=== PATIENT | male | born 1935 | race African-American/Black ===

== ENCOUNTER 2017-05-16 13:30 | Inpatient (IN) | payer MEDICARE ==
[~2017-05-16] VITALS: Ht 188 cm; Wt 66.2 kg
[2017-05-16] MEDS ORDERED: SODIUM CHLORIDE 0.9% 1,000 ML IV ONE (14:15)
[2017-05-16 14:44] LABS: KETONES URINE NEGATIVE (NEGATIVE); LEUKOCYTE ESTERASE URINE 3+ (NEGATIVE); NITRITE URINE NEGATIVE (NEGATIVE); OCCULT BLOOD URINE 3+ (NEGATIVE); PH URINE 6.5 (4.5-8.0); PROTEIN URINE 3+ (NEGATIVE); SPECIFIC GRAVITY URINE 1.012 (1.005-1.030); UROBILINOGEN URINE 0.2 E.U./dL (0.2-1.0)
[2017-05-16 14:47] LABS: CLARITY URINE TURBID (CLEAR); COLOR URINE YELLOW (YELLOW)
[2017-05-16] MEDS ORDERED: PIPERACILLIN/TAZ 3.375G PREMIX 50 ML IV ONE (15:15)
[2017-05-16 15:27] LABS: BASOPHILS % 0.7 % (0.0-2.0); EOSINOPHILS % 0.7 % (0.0-5.0); HEMATOCRIT. 31.3 % (42.0-52.0); HEMOGLOBIN. 10.1 g/dL (14.0-18.0); LYMPHOCYTES % 35.5 % (20.0-50.0); MEAN CORPUSCULAR HEMOGLOBIN 27.8 pg (28.0-32.0); MEAN CORPUSCULAR VOLUME 86.2 fL (80.0-94.0); MEAN PLATELET VOLUME 8.2 fl (7.4-10.4); MONOCYTES % 9.6 % (2.0-8.0); NEUTROPHILS % 53.5 % (40.0-76.0); PLATELET 267 x1000/uL (130-400); RED BLOOD CELL COUNT 3.63 mill/uL (4.7-6.1); RED CELL DISTRIBUTION WIDTH 17.7 % (11.6-14.6)
[2017-05-16 15:31] LABS: INR 1.1; PROTHROMBIN TIME 11.1 sec (9.4-11.6)
[2017-05-16 15:32] LABS: CHLORIDE 104 mEq/L (98-107)
[2017-05-16] MEDS ORDERED: INSULIN REGULAR (HUMULIN R) 300UNITS/3ML IV ONE (15:45)
[2017-05-16] MEDS ORDERED: DEXTROSE 50% WATER 50ML SYRINGE IV ONE (15:45)
[2017-05-16] MEDS ORDERED: SODIUM BICARBONATE 8.4% 1 MEQ/ML 50ML SYR IV ONE (15:45)
[2017-05-16] MEDS ORDERED: SODIUM POLYSTYRENE SULFONATE 15 G/60 ML BOT PO ONE (15:45)
[2017-05-16] MEDS ORDERED: ALBUTEROL (0.083%) 2.5MG/3ML NEB HHN ONE (15:45)
[2017-05-16] MEDS ORDERED: ACETAMINOPHEN 325MG TABLET PO PRN (19:15)
[2017-05-16] MEDS ORDERED: GUAIFENESIN 200MG/10ML SUGAR FREE UDC PO PRN (19:15)
[2017-05-16] MEDS ORDERED: NA PHOS,M-B/NA PHOS,DI-BA ENEMA 118ML PR PRN (19:15)
[2017-05-16] MEDS ORDERED: ONDANSETRON HCL 4MG/2ML VIAL IV PRN (19:15)
[2017-05-16] MEDS ORDERED: MAGNESIUM/ALUMINUM HYDROXIDE/SIMETHICONE 30ML UDC PO PRN (19:15)
[2017-05-16] MEDS ORDERED: CLONIDINE 0.1MG TABLET PO PRN (19:15)
[2017-05-16] MEDS ORDERED: PIPERACILLIN/TAZ 2.25G PREMIX 50 ML IV ONE (22:00)
[2017-05-16 23:15] VITALS: BP 140/68
[2017-05-17] VITALS: BP 140/68
[2017-05-17] MEDS ORDERED: DEXTROSE 50% WATER 50ML SYRINGE IV PRN ×2 (00:45)
[2017-05-17 04:00] VITALS: BP 108/59
[2017-05-17] MEDS: PIPERACILLIN/TAZ 2.25G PREMIX 50 ML IV SCH ×2 (04:15→17:22)
[2017-05-17] MEDS: BLOOD SUGAR DIAGNOSTIC STRIP TEST SCH ×4 (06:16→20:55)
[2017-05-17] MEDS: INSULIN LISPRO 100 UNITS/ML SUBCUT SCH ×4 (06:19→20:57)
[2017-05-17 06:21] LABS: BASOPHILS % 1.1 % (0.0-2.0); EOSINOPHILS % 1.6 % (0.0-5.0); HEMATOCRIT. 27.3 % (42.0-52.0); LYMPHOCYTES % 28.5 % (20.0-50.0); MEAN CORPUSCULAR VOLUME 84.3 fL (80.0-94.0); MEAN PLATELET VOLUME 7.5 fl (7.4-10.4); MONOCYTES % 11.1 % (2.0-8.0); NEUTROPHILS % 57.7 % (40.0-76.0); PLATELET 254 x1000/uL (130-400); RED BLOOD CELL COUNT 3.23 mill/uL (4.7-6.1); RED CELL DISTRIBUTION WIDTH 17.3 % (11.6-14.6)
[2017-05-17 08:00] VITALS: BP 118/54
[2017-05-17] MEDS ORDERED: SODIUM POLYSTYRENE SULFONATE 15 G/60 ML BOT PO NR (11:00)
[2017-05-17] MEDS ORDERED: SODIUM BICARBONATE 8.4% 1 MEQ/ML 50ML SYR IV NR (11:00)
[2017-05-17] MEDS ORDERED: SODIUM CHLORIDE 0.45% 1,000 ML IV SCH (11:15)
[2017-05-17 12:00] VITALS: BP 100/41
[2017-05-17] MEDS ORDERED: DEXTROSE 50% WATER 50ML SYRINGE IV NR (12:00)
[2017-05-17] MEDS ORDERED: INSULIN REGULAR (HUMULIN R) UD 100 UNITS/ML SYR IV NR (12:00)
[2017-05-17] MEDS ORDERED: SODIUM BICARBONATE 4% (2.4MEQ) 5ML VIAL IV ONE (13:01)
[2017-05-17] MEDS ORDERED: LIDOCAINE HCL/PF 1% 10 MG/ML 5ML VIAL ONE (13:01)
[2017-05-17 16:00] VITALS: BP 99/75
[2017-05-17 20:00] VITALS: BP 106/55
[2017-05-17] MEDS: DEXT 5%/0.45% NACL 1000ML 1,000 ML IV SCH (20:57)
[2017-05-18] VITALS: BP 110/88
[2017-05-18 04:00] VITALS: BP 119/70
[2017-05-18] MEDS: PIPERACILLIN/TAZ 2.25G PREMIX 50 ML IV SCH ×2 (04:04→16:49)
[2017-05-18] MEDS: BLOOD SUGAR DIAGNOSTIC STRIP TEST SCH ×4 (05:54→21:29)
[2017-05-18] MEDS: INSULIN LISPRO 100 UNITS/ML SUBCUT SCH ×4 (05:58→21:00)
[2017-05-18 07:35] LABS: BASOPHILS % 0.7 % (0.0-2.0); EOSINOPHILS % 1.8 % (0.0-5.0); HEMATOCRIT. 25.8 % (42.0-52.0); HEMOGLOBIN. 8.6 g/dL (14.0-18.0); LYMPHOCYTES % 25.1 % (20.0-50.0); MEAN CORPUSCULAR HEMOGLOBIN 28.1 pg (28.0-32.0); MEAN CORPUSCULAR VOLUME 84.2 fL (80.0-94.0); MEAN PLATELET VOLUME 7.9 fl (7.4-10.4); MONOCYTES % 7.9 % (2.0-8.0); NEUTROPHILS % 64.5 % (40.0-76.0); PLATELET 191 x1000/uL (130-400); RED BLOOD CELL COUNT 3.06 mill/uL (4.7-6.1); RED CELL DISTRIBUTION WIDTH 17.3 % (11.6-14.6)
[2017-05-18 07:51] LABS: PHOSPHORUS 4.8 mg/dL (2.5-4.9)
[2017-05-18 08:00] VITALS: BP 100/54
[2017-05-18] MEDS: FINASTERIDE 5MG TABLET PO SCH (10:53)
[2017-05-18] MEDS: TAMSULOSIN HCL 0.4MG SR CAPSULE PO SCH (10:53)
[2017-05-18] MEDS: DEXT 5%/0.45% NACL 1000ML 1,000 ML IV SCH ×2 (11:10→21:35)
[2017-05-18 12:00] VITALS: BP 101/50
[2017-05-18 13:07] LABS: PROSTRATE SPECIFIC AG TOTAL 16.43 ng/mL (0.0-4.0)
[2017-05-18 13:08] LABS: HEPATITIS B SURFACE AB > 1000.0 mIU/mL
[2017-05-18 13:19] LABS: HEPATITIS B SURFACE ANTIGEN NEGATIVE
[2017-05-18 13:47] LABS: HEPATITIS B CORE AB IGM NEGATIVE
[2017-05-18 13:48] LABS: HEPATITIS A AB IGM NEGATIVE (NEGATIVE)
[2017-05-18 16:00] VITALS: BP 90/51
[2017-05-18 20:00] VITALS: BP 130/70
[2017-05-18] MEDS: EPOETIN ALFA 10000UNITS/ML VIAL SUBCUT SCH (21:32)
[2017-05-19] VITALS: BP 125/72
[2017-05-19 04:00] VITALS: BP 100/57
[2017-05-19] MEDS: PIPERACILLIN/TAZ 2.25G PREMIX 50 ML IV SCH ×2 (04:10→16:17)
[2017-05-19] MEDS: BLOOD SUGAR DIAGNOSTIC STRIP TEST SCH ×5 (05:42→21:24)
[2017-05-19] MEDS: INSULIN LISPRO 100 UNITS/ML SUBCUT SCH ×4 (05:44→21:00)
[2017-05-19 06:50] LABS: BASOPHILS % 0.6 % (0.0-2.0); EOSINOPHILS % 1.5 % (0.0-5.0); HEMATOCRIT. 26.8 % (42.0-52.0); LYMPHOCYTES % 24.4 % (20.0-50.0); MEAN CORPUSCULAR HEMOGLOBIN 28.4 pg (28.0-32.0); MEAN CORPUSCULAR VOLUME 84.8 fL (80.0-94.0); MEAN PLATELET VOLUME 7.8 fl (7.4-10.4); MONOCYTES % 8.2 % (2.0-8.0); NEUTROPHILS % 65.3 % (40.0-76.0); PLATELET 181 x1000/uL (130-400); RED BLOOD CELL COUNT 3.16 mill/uL (4.7-6.1); RED CELL DISTRIBUTION WIDTH 17.4 % (11.6-14.6)
[2017-05-19 08:00] VITALS: BP 109/62
[2017-05-19] MEDS: FINASTERIDE 5MG TABLET PO SCH (08:19)
[2017-05-19] MEDS: TAMSULOSIN HCL 0.4MG SR CAPSULE PO SCH (08:20)
[2017-05-19] MEDS: DEXT 5%/0.45% NACL 1000ML 1,000 ML IV SCH (11:14)
[2017-05-19 12:00] VITALS: BP 109/67
[2017-05-19 16:00] VITALS: BP 122/63
[2017-05-19 20:00] VITALS: BP 120/71
[2017-05-20] VITALS: BP 107/59
[2017-05-20] MEDS: DEXT 5%/0.45% NACL 1000ML 1,000 ML IV SCH (01:11)
[2017-05-20 04:00] VITALS: BP 102/58
[2017-05-20] MEDS: PIPERACILLIN/TAZ 2.25G PREMIX 50 ML IV SCH ×2 (04:28→18:47)
[2017-05-20 06:10] LABS: HEMATOCRIT. 27.1 % (42.0-52.0); MEAN CORPUSCULAR HEMOGLOBIN 28.1 pg (28.0-32.0); MEAN CORPUSCULAR VOLUME 85.1 fL (80.0-94.0); MEAN PLATELET VOLUME 8.1 fl (7.4-10.4); MONOCYTES % 9.4 % (2.0-8.0); NEUTROPHILS % 55.6 % (40.0-76.0); PLATELET 130 x1000/uL (130-400); RED BLOOD CELL COUNT 3.19 mill/uL (4.7-6.1); RED CELL DISTRIBUTION WIDTH 17.1 % (11.6-14.6)
[2017-05-20] MEDS: INSULIN LISPRO 100 UNITS/ML SUBCUT SCH ×2 (06:35→21:00)
[2017-05-20] MEDS: BLOOD SUGAR DIAGNOSTIC STRIP TEST SCH ×2 (06:35→21:16)
[2017-05-20 08:00] VITALS: BP 106/79
[2017-05-20] MEDS: FINASTERIDE 5MG TABLET PO SCH (09:00)
[2017-05-20] MEDS: TAMSULOSIN HCL 0.4MG SR CAPSULE PO SCH (09:00)
[2017-05-20 12:00] VITALS: BP_SYST 110; BP_SYST 168; BP_DIAS 74; BP_DIAS 96
[2017-05-20] MEDS ORDERED: MIDAZOLAM HCL 5 MG/5 ML VIAL ONE (13:03)
[2017-05-20] MEDS ORDERED: FENTANYL CITRATE/PF 50MCG/ML 2ML VIAL ONE (13:03)
[2017-05-20] MEDS ORDERED: TETRACAINE/BENZOCAINE/BUTAMBEN 20 GM SPRAY MM ONE (13:03)
[2017-05-20] MEDS ORDERED: LIDOCAINE HCL 2% JELLY 5ML ONE (13:03)
[2017-05-20 16:00] VITALS: BP 99/72
[2017-05-20 19:54] VITALS: BP 104/51
[2017-05-20] MEDS: EPOETIN ALFA 10000UNITS/ML VIAL SUBCUT SCH (21:11)
[2017-05-21] VITALS: BP 108/60
[2017-05-21] MEDS: PIPERACILLIN/TAZ 2.25G PREMIX 50 ML IV SCH (03:25)
[2017-05-21] MEDS: DEXT 5%/0.45% NACL 1000ML 1,000 ML IV SCH ×2 (03:25→20:53)
[2017-05-21 04:00] VITALS: BP 114/65
[2017-05-21] MEDS: BLOOD SUGAR DIAGNOSTIC STRIP TEST SCH ×4 (06:26→20:52)
[2017-05-21] MEDS: INSULIN LISPRO 100 UNITS/ML SUBCUT SCH ×4 (06:47→20:52)
[2017-05-21 08:00] VITALS: BP 106/59
[2017-05-21] MEDS: TAMSULOSIN HCL 0.4MG SR CAPSULE PO SCH (09:00)
[2017-05-21] MEDS: FINASTERIDE 5MG TABLET PO SCH (10:19)
[2017-05-21 12:00] VITALS: BP 100/61
[2017-05-21 13:35] LABS: EOSINOPHILS % 1.8 % (0.0-5.0); HEMATOCRIT. 29.7 % (42.0-52.0); HEMOGLOBIN. 9.7 g/dL (14.0-18.0); LYMPHOCYTES % 21.1 % (20.0-50.0); MEAN CORPUSCULAR HEMOGLOBIN 28.2 pg (28.0-32.0); MEAN CORPUSCULAR VOLUME 86.6 fL (80.0-94.0); MEAN PLATELET VOLUME 8.2 fl (7.4-10.4); MONOCYTES % 6.6 % (2.0-8.0); NEUTROPHILS % 69.5 % (40.0-76.0); PLATELET 143 x1000/uL (130-400); RED BLOOD CELL COUNT 3.43 mill/uL (4.7-6.1); RED CELL DISTRIBUTION WIDTH 17.2 % (11.6-14.6)
[2017-05-21 16:00] VITALS: BP 103/64
[2017-05-21] MEDS ORDERED: LEVOFLOXACIN 500MG TABLET PO NR (16:25)
[2017-05-21] MEDS: CEFTRIAXONE 2 G in DEXTROSE 5% WATER 50 ML IV SCH (18:47)
[2017-05-21 20:00] VITALS: BP 104/55
[2017-05-21] MEDS ORDERED: VANCOMYCIN 1 G PREMIX 200 ML IV NR (20:00)
[2017-05-22] VITALS: BP 102/60
[2017-05-22 04:00] VITALS: BP 128/66
[2017-05-22] MEDS: BLOOD SUGAR DIAGNOSTIC STRIP TEST SCH ×4 (07:33→21:00)
[2017-05-22 07:34] LABS: BASOPHILS % 0.9 % (0.0-2.0); HEMATOCRIT. 27.9 % (42.0-52.0); HEMOGLOBIN. 9.1 g/dL (14.0-18.0); LYMPHOCYTES % 28.1 % (20.0-50.0); MEAN CORPUSCULAR HEMOGLOBIN 28.1 pg (28.0-32.0); MEAN CORPUSCULAR VOLUME 86.2 fL (80.0-94.0); MEAN PLATELET VOLUME 8.4 fl (7.4-10.4); MONOCYTES % 8.6 % (2.0-8.0); NEUTROPHILS % 60.4 % (40.0-76.0); PLATELET 130 x1000/uL (130-400); RED BLOOD CELL COUNT 3.24 mill/uL (4.7-6.1)
[2017-05-22 07:35] LABS: INR 1.2; PARTIAL THROMBOPLASTIN TIME 31.8 sec (23.4-31.0); PROTHROMBIN TIME 12.2 sec (9.4-11.6)
[2017-05-22] MEDS: INSULIN LISPRO 100 UNITS/ML SUBCUT SCH ×4 (07:35→21:00)
[2017-05-22 07:39] VITALS: BP 128/61
[2017-05-22] MEDS: FINASTERIDE 5MG TABLET PO SCH (08:22)
[2017-05-22] MEDS: TAMSULOSIN HCL 0.4MG SR CAPSULE PO SCH (08:22)
[2017-05-22 08:30] LABS: C REACTIVE PROTEIN QUANT 8.5 mg/L (0.0-3.0)
[2017-05-22] MEDS ORDERED: VANCOMYCIN 1250MG in DEXTROSE 5% WATER 250ML IV NR (10:00)
[2017-05-22 11:43] VITALS: BP 107/51
[2017-05-22 16:01] VITALS: BP 104/52
[2017-05-22] MEDS: CEFTRIAXONE 2 G in DEXTROSE 5% WATER 50 ML IV SCH (16:58)
[2017-05-22] MEDS: DEXT 5%/0.45% NACL 1000ML 1,000 ML IV SCH (16:58)
[2017-05-22 20:00] VITALS: BP 111/55
[2017-05-22] MEDS: EPOETIN ALFA 10000UNITS/ML VIAL SUBCUT SCH (21:05)
[2017-05-23] VITALS: BP 107/59
[2017-05-23 04:00] VITALS: BP 105/62
[2017-05-23] MEDS: BLOOD SUGAR DIAGNOSTIC STRIP TEST SCH (06:47)
[2017-05-23] MEDS: INSULIN LISPRO 100 UNITS/ML SUBCUT SCH (06:48)
[2017-05-23 07:59] VITALS: BP 118/65
[2017-05-23] MEDS: TAMSULOSIN HCL 0.4MG SR CAPSULE PO SCH (08:01)
[2017-05-23] MEDS: FINASTERIDE 5MG TABLET PO SCH (08:01)
[2017-05-23 08:03] LABS: BASOPHILS % 0.8 % (0.0-2.0); EOSINOPHILS % 2.6 % (0.0-5.0); HEMATOCRIT. 30.4 % (42.0-52.0); HEMOGLOBIN. 9.6 g/dL (14.0-18.0); MEAN CORPUSCULAR HEMOGLOBIN 27.9 pg (28.0-32.0); MEAN CORPUSCULAR VOLUME 88.1 fL (80.0-94.0); MEAN PLATELET VOLUME 8.6 fl (7.4-10.4); MONOCYTES % 8.4 % (2.0-8.0); NEUTROPHILS % 51.2 % (40.0-76.0); PLATELET 147 x1000/uL (130-400); RED BLOOD CELL COUNT 3.46 mill/uL (4.7-6.1)
[2017-05-23 08:44] LABS: PHOSPHORUS 2.3 mg/dL (2.5-4.9)
[2017-05-23] MEDS: LEVOFLOXACIN 250MG TABLET PO SCH (11:24)
[2017-05-23] MEDS: DEXT 5%/0.45% NACL 1000ML 1,000 ML IV SCH (11:24)
[2017-05-23 11:47] VITALS: BP 92/55
[2017-05-23] MEDS ORDERED: VANCOMYCIN 1 G PREMIX 200 ML IV NR (12:00)
[2017-05-23] MEDS ORDERED: VANCOMYCIN 1250MG in DEXTROSE 5% WATER 250ML IV NR (12:00)
[2017-05-23 16:00] VITALS: BP 100/60
[2017-05-23] MEDS: CEFTRIAXONE 2 G in DEXTROSE 5% WATER 50 ML IV SCH (17:00)
[2017-05-23 20:00] VITALS: BP 109/58
[2017-05-23] MEDS ORDERED: SODIUM PHOS,M-BASIC-D-BASIC 15 MM in DEXT 5% WATER 245 ML IV NR (23:00)
[2017-05-23] MEDS ORDERED: MAGNESIUM 2 G PREMIX 50 ML IV NR (23:00)
[2017-05-24] VITALS (7 sets, daily range): BP systolic 103–128; BP diastolic 51–70
[2017-05-24 07:28] LABS: BASOPHILS % 1.2 % (0.0-2.0); EOSINOPHILS % 3.1 % (0.0-5.0); HEMATOCRIT. 27.4 % (42.0-52.0); HEMOGLOBIN. 8.9 g/dL (14.0-18.0); LYMPHOCYTES % 34.7 % (20.0-50.0); MEAN CORPUSCULAR HEMOGLOBIN 28.4 pg (28.0-32.0); MEAN CORPUSCULAR VOLUME 87.5 fL (80.0-94.0); MEAN PLATELET VOLUME 8.3 fl (7.4-10.4); MONOCYTES % 9.4 % (2.0-8.0); NEUTROPHILS % 51.6 % (40.0-76.0); PLATELET 141 x1000/uL (130-400); RED BLOOD CELL COUNT 3.13 mill/uL (4.7-6.1); RED CELL DISTRIBUTION WIDTH 16.6 % (11.6-14.6)
[2017-05-24] MEDS: DEXT 5%/0.45% NACL 1000ML 1,000 ML IV SCH (08:20)
[2017-05-24] MEDS: FINASTERIDE 5MG TABLET PO SCH (08:21)
[2017-05-24] MEDS: TAMSULOSIN HCL 0.4MG SR CAPSULE PO SCH (08:27)
[2017-05-24] MEDS: CEFTRIAXONE 2 G in DEXTROSE 5% WATER 50 ML IV SCH (17:43)
[2017-05-25] VITALS: BP 121/64
[2017-05-25 04:00] VITALS: BP 110/62
[2017-05-25] MEDS: DEXT 5%/0.45% NACL 1000ML 1,000 ML IV SCH (04:45)
[2017-05-25 08:00] VITALS: BP 104/67
[2017-05-25] MEDS: TAMSULOSIN HCL 0.4MG SR CAPSULE PO SCH (08:42)
[2017-05-25] MEDS: FINASTERIDE 5MG TABLET PO SCH (08:42)
[2017-05-25] MEDS: LEVOFLOXACIN 250MG TABLET PO SCH (11:09)
[2017-05-25 12:00] VITALS: BP 112/64
[2017-05-25] MEDS ORDERED: VANCOMYCIN 1250MG in DEXTROSE 5% WATER 250ML IV SCH (14:30)
[2017-05-25] MEDS: CEFTRIAXONE 2 G in DEXTROSE 5% WATER 50 ML IV SCH (15:24)
[2017-05-25 16:00] VITALS: BP 116/71
== END 2017-05-25 18:57 | disposition home or self-care (01) | DRG 871 ==
LOC: ER 15:17 → 8WST 16:13 → EDBEDREQTM 16:15 → EDBEDREQ 16:15 → SUPCPDRO 19:09 → ENRESERV 19:30
PROVIDERS: ADMIT Internal Medicine Nephrology; ATTEND Internal Medicine Nephrology
PROC: 02HV33Z Insertion of Infusion Device into Superior Vena Cava, Percutaneous Approach (ICD-10-PCS; 2017-05-17)
PROC: B548ZZA Ultrasonography of Superior Vena Cava, Guidance (ICD-10-PCS; 2017-05-17)
PROC: B24BZZ4 Ultrasonography of Heart with Aorta, Transesophageal (ICD-10-PCS; principal; 2017-05-20)
PROC: 02HV33Z Insertion of Infusion Device into Superior Vena Cava, Percutaneous Approach (ICD-10-PCS; 2017-05-22)
PROC: B5181ZA Fluoroscopy of Superior Vena Cava using Low Osmolar Contrast, Guidance (ICD-10-PCS; 2017-05-22)
DX: A41.9 Sepsis, unspecified organism (principal); N17.0 Acute kidney failure with tubular necrosis; E87.2 Acidosis; I13.0 Hypertensive heart and chronic kidney disease with heart failure and stage 1 through stage 4 chronic kidney disease, or unspecified chronic kidney disease; N39.0 Urinary tract infection, site not specified; N13.8 Other obstructive and reflux uropathy; E87.5 Hyperkalemia; B96.89 Other specified bacterial agents as the cause of diseases classified elsewhere; R31.0 Gross hematuria; N18.9 Chronic kidney disease, unspecified; D50.0 Iron deficiency anemia secondary to blood loss (chronic); N40.1 Benign prostatic hyperplasia with lower urinary tract symptoms; I27.20 Pulmonary hypertension, unspecified; D63.8 Anemia in other chronic diseases classified elsewhere; N28.1 Cyst of kidney, acquired; I50.9 Heart failure, unspecified; R33.8 Other retention of urine; N41.9 Inflammatory disease of prostate, unspecified
CPT/HCPCS: 36415; 36556; 51702; 71045; 74176; 76770; 76937; 77001; 80048; 80053; 80202; 81003; 82570; 82962; 83036; 83605; 83735; 83880; 84100; 84153; 84484; 85025; 85610; 85651; 85730; 86140; 86705; 86706; 86709; 86803; 87040; 87077; 87086; 87186; 87340; 93005; 93306; 93312; 93970; 94640; 96361; 96365; 96375; 97110; 97116; 97162; 97530; 99291; C1752; C1769; C1893; J0696; J0885; J1642; J1815; J2250; J2543; J3010; J3370; J3475; J3490; J7030; J7040; J7050; J7060; J7611; A4315

== ENCOUNTER 2017-06-08 10:55 | Inpatient (IN) | payer MEDICARE ==
[~2017-06-08] VITALS: Ht 188 cm; Wt 63.5 kg
[2017-06-08 12:36] LABS: BASOPHILS % 1.2 % (0.0-2.0); EOSINOPHILS % 1.1 % (0.0-5.0); HEMATOCRIT. 27.6 % (42.0-52.0); HEMOGLOBIN. 8.8 g/dL (14.0-18.0); LYMPHOCYTES % 14.7 % (20.0-50.0); MEAN CORPUSCULAR HEMOGLOBIN 28.6 pg (28.0-32.0); MEAN PLATELET VOLUME 8.4 fl (7.4-10.4); MONOCYTES % 8.7 % (2.0-8.0); NEUTROPHILS % 74.3 % (40.0-76.0); PLATELET 238 x1000/uL (130-400); RED BLOOD CELL COUNT 3.07 mill/uL (4.7-6.1); RED CELL DISTRIBUTION WIDTH 17.3 % (11.6-14.6)
[2017-06-08 12:43] LABS: INR 1.1
[2017-06-08 12:46] LABS: CHLORIDE 113 mEq/L (98-107)
[2017-06-08 12:51] LABS: BG BASE EXCESS -8.5 mmol/L (-2.0-2.0); BG CARBOXYHEMOGLOBIN 0.4 % (0.5-1.5); BG DEOXYHEMOGLOBIN 2.6 % (0.0-5.0); BG FRACTION INSPIRED OXYGEN 21; BG HCO3 ACT 15.5 mmol/L (22.0-26.0); BG PCO2 27.1 mmHg (35.0-45.0); BG PH 7.376 (7.350-7.450); BG SAMPLE SITE RIGHT RADIAL; BG TOTAL HEMOGLOBIN 9.6 g/dL (12.0-18.0); BG VENT MODE ROOM AIR
[2017-06-08 13:44] LABS: CREATINE KINASE MB FRACTION 10.1 ng/mL (0.5-3.6)
[2017-06-08] MEDS ORDERED: HYDROMORPHONE HCL/PF 2MG/ML CPJ IV PRN (14:15)
[2017-06-08] MEDS ORDERED: CLONIDINE 0.1MG TABLET PO PRN (14:15)
[2017-06-08] MEDS ORDERED: ONDANSETRON HCL 4MG/2ML VIAL IV PRN (14:15)
[2017-06-08] MEDS ORDERED: ACETAMINOPHEN 325MG TABLET PO PRN (14:15)
[2017-06-08] MEDS ORDERED: DOCUSATE SODIUM 100MG CAPSULE PO PRN (14:15)
[2017-06-08] MEDS ORDERED: DEXT 5%/0.45% NACL 1000ML 1,000 ML IV SCH (14:48)
[2017-06-08] MEDS ORDERED: CEFTRIAXONE 2 G PREMIX 50 ML IV NR (14:50)
[2017-06-08] MEDS ORDERED: VANCOMYCIN 1250MG in DEXTROSE 5% WATER 250ML IV NR (14:52)
[2017-06-08 15:38] LABS: AMMONIA 14 uMol/L (<32)
[2017-06-08] MEDS ORDERED: CLOPIDOGREL 75MG TABLET PO SCH (16:15)
[2017-06-08 18:08] LABS: CLARITY URINE CLEAR (CLEAR); COLOR URINE YELLOW (YELLOW); KETONES URINE TRACE (NEGATIVE); LEUKOCYTE ESTERASE URINE TRACE (NEGATIVE); NITRITE URINE NEGATIVE (NEGATIVE); OCCULT BLOOD URINE 1+ (NEGATIVE); PROTEIN URINE TRACE (NEGATIVE); SPECIFIC GRAVITY URINE 1.015 (1.005-1.030); UROBILINOGEN URINE 0.2 E.U./dL (0.2-1.0)
[2017-06-08 20:00] VITALS: BP 121/64
[2017-06-08 20:20] VITALS: BP 121/64
[2017-06-08] MEDS: FUROSEMIDE 20MG TABLET PO SCH (21:28)
[2017-06-08] MEDS: LEVOFLOXACIN 250MG TABLET PO SCH (21:28)
[2017-06-08] MEDS: TAMSULOSIN HCL 0.4MG SR CAPSULE PO SCH (21:31)
[2017-06-08] MEDS: FINASTERIDE 5MG TABLET PO SCH (21:31)
[2017-06-08] MEDS ORDERED: FINA5TAB11 MT (22:36)
[2017-06-08] MEDS ORDERED: TAMS-11 MT (22:36)
[2017-06-08] MEDS ORDERED: LEVO250T2 MT (22:36)
[2017-06-09] VITALS (9 sets, daily range): BP systolic 106–157; BP diastolic 64–86
[2017-06-09] MEDS: EPOETIN ALFA 10000UNITS/ML VIAL SUBCUT SCH ×2 (01:16→20:30)
[2017-06-09 07:36] LABS: BASOPHILS % 1.2 % (0.0-2.0); EOSINOPHILS % 3.6 % (0.0-5.0); HEMATOCRIT. 23.1 % (42.0-52.0); HEMOGLOBIN. 7.5 g/dL (14.0-18.0); LYMPHOCYTES % 21.7 % (20.0-50.0); MEAN CORPUSCULAR HEMOGLOBIN 28.8 pg (28.0-32.0); MEAN CORPUSCULAR VOLUME 88.5 fL (80.0-94.0); MONOCYTES % 8.6 % (2.0-8.0); NEUTROPHILS % 64.9 % (40.0-76.0); PLATELET 217 x1000/uL (130-400); RED BLOOD CELL COUNT 2.61 mill/uL (4.7-6.1); RED CELL DISTRIBUTION WIDTH 16.7 % (11.6-14.6)
[2017-06-09] MEDS: IPRATROPIUM/ALBUTEROL 0.5-3(2.5)MG/3ML NEB INH SCH ×3 (08:11→20:20)
[2017-06-09 08:36] LABS: CHLORIDE 117 mEq/L (98-107)
[2017-06-09 08:45] LABS: HDL CHOLESTEROL 67 mg/dL (40-59)
[2017-06-09 08:48] LABS: PHOSPHORUS 3.8 mg/dL (2.5-4.9)
[2017-06-09 08:49] LABS: LDL CHOLESTEROL 41 mg/dL (5-100)
[2017-06-09 08:50] LABS: CREATINE KINASE 444 IU/L (39-308)
[2017-06-09] MEDS ORDERED: SODIUM POLYSTYRENE SULFONATE 15 G/60 ML BOT PO SCH (09:00)
[2017-06-09 10:18] LABS: T4 FREE 1.02 ng/dL (0.76-1.46)
[2017-06-09] MEDS: FUROSEMIDE 20MG TABLET PO SCH (10:31)
[2017-06-09] MEDS: TAMSULOSIN HCL 0.4MG SR CAPSULE PO SCH (10:32)
[2017-06-09] MEDS: FINASTERIDE 5MG TABLET PO SCH (10:32)
[2017-06-09 10:36] LABS: FOLIC ACID (FOLATE) SERUM 11.1 ng/mL (>5.38)
[2017-06-09] MEDS ORDERED: VANCOMYCIN 1 G PREMIX 200 ML IV NR (12:00)
[2017-06-09] MEDS ORDERED: CEFTRIAXONE 2 G PREMIX 50 ML IV SCH ×2 (15:00→20:00)
[2017-06-09] MEDS: CEFTRIAXONE 2 G in DEXTROSE 5% WATER 50 ML IV SCH (20:30)
[2017-06-09] MEDS ORDERED: FUROSEMIDE 40MG/4ML VIAL IVP NR (23:30)
[2017-06-09] MEDS ORDERED: IPRATROPIUM/ALBUTEROL 0.5-3(2.5)MG/3ML NEB HHN PRN (23:30)
[2017-06-09 23:53] LABS: BG BASE EXCESS -3.8 mmol/L (-2.0-2.0); BG CARBOXYHEMOGLOBIN 0.4 % (0.5-1.5); BG DEOXYHEMOGLOBIN 1.9 % (0.0-5.0); BG FRACTION INSPIRED OXYGEN 60; BG HCO3 ACT 19.4 mmol/L (22.0-26.0); BG METHEMOGLOBIN 0.2 % (0.0-1.5); BG OXYGEN SATURATION 98.1 % (92.0-98.5); BG OXYHEMOGLOBIN 97.5 % (94.0-97.0); BG PCO2 28.7 mmHg (35.0-45.0); BG PH 7.447 (7.350-7.450); BG PO2 107.3 mmHg (75.0-100.0); BG SAMPLE SITE LEFT RADIAL; BG VENT MODE MASK - AEROSOL
[2017-06-10] VITALS: BP 146/81
[2017-06-10] MEDS: IPRATROPIUM/ALBUTEROL 0.5-3(2.5)MG/3ML NEB INH SCH ×4 (02:42→20:55)
[2017-06-10 03:58] VITALS: BP 110/63
[2017-06-10 06:48] LABS: BASOPHILS % 0.8 % (0.0-2.0); EOSINOPHILS % 0.4 % (0.0-5.0); HEMATOCRIT. 23.5 % (42.0-52.0); HEMOGLOBIN. 7.7 g/dL (14.0-18.0); LYMPHOCYTES % 12.3 % (20.0-50.0); MEAN CORPUSCULAR VOLUME 88.5 fL (80.0-94.0); MEAN PLATELET VOLUME 8.6 fl (7.4-10.4); MONOCYTES % 10.5 % (2.0-8.0); PLATELET 196 x1000/uL (130-400); RED BLOOD CELL COUNT 2.66 mill/uL (4.7-6.1); RED CELL DISTRIBUTION WIDTH 16.2 % (11.6-14.6)
[2017-06-10 07:21] LABS: PHOSPHORUS 4.1 mg/dL (2.5-4.9)
[2017-06-10 08:00] VITALS: BP 108/47
[2017-06-10] MEDS: FUROSEMIDE 20MG TABLET PO SCH ×2 (09:00→09:44)
[2017-06-10] MEDS: TAMSULOSIN HCL 0.4MG SR CAPSULE PO SCH ×2 (09:00→09:44)
[2017-06-10] MEDS: FINASTERIDE 5MG TABLET PO SCH ×2 (09:00→09:44)
[2017-06-10 12:00] VITALS: BP 108/54
[2017-06-10] MEDS ORDERED: MAGNESIUM 2 G PREMIX 50 ML IV SCH (12:00)
[2017-06-10] MEDS: FUROSEMIDE 40MG/4ML VIAL IVP SCH (12:43)
[2017-06-10] MEDS ORDERED: DEXT 5%/0.45% NACL 1000ML 1,000 ML IV SCH (14:45)
[2017-06-10 16:00] VITALS: BP 112/57
[2017-06-10] MEDS ORDERED: VANCOMYCIN 1 G PREMIX 200 ML IV NR (18:00)
[2017-06-10] MEDS: LEVOFLOXACIN 250MG TABLET PO SCH (19:42)
[2017-06-10 20:08] VITALS: BP_SYST 101; BP_SYST 108; BP_DIAS 56; BP_DIAS 64
[2017-06-10] MEDS: CEFTRIAXONE 2 G in DEXTROSE 5% WATER 50 ML IV SCH (20:35)
[2017-06-10] MEDS: EPOETIN ALFA 10000UNITS/ML VIAL SUBCUT SCH (21:32)
[2017-06-11] VITALS: BP 123/72
[2017-06-11] MEDS: IPRATROPIUM/ALBUTEROL 0.5-3(2.5)MG/3ML NEB INH SCH ×3 (02:35→14:09)
[2017-06-11 04:47] VITALS: BP 122/67
[2017-06-11 07:13] LABS: BASOPHILS % 0.8 % (0.0-2.0); EOSINOPHILS % 4.3 % (0.0-5.0); HEMATOCRIT. 24.7 % (42.0-52.0); HEMOGLOBIN. 8.1 g/dL (14.0-18.0); LYMPHOCYTES % 21.6 % (20.0-50.0); MEAN CORPUSCULAR HEMOGLOBIN 29.1 pg (28.0-32.0); MEAN CORPUSCULAR VOLUME 88.9 fL (80.0-94.0); MEAN PLATELET VOLUME 9.1 fl (7.4-10.4); MONOCYTES % 9.8 % (2.0-8.0); NEUTROPHILS % 63.5 % (40.0-76.0); PLATELET 190 x1000/uL (130-400); RED BLOOD CELL COUNT 2.78 mill/uL (4.7-6.1); RED CELL DISTRIBUTION WIDTH 16.2 % (11.6-14.6)
[2017-06-11 08:00] VITALS: BP 115/58
[2017-06-11 08:15] LABS: PHOSPHORUS 4.8 mg/dL (2.5-4.9)
[2017-06-11 08:20] LABS: CREATINE KINASE MB FRACTION 1.6 ng/mL (0.5-3.6)
[2017-06-11] MEDS: FUROSEMIDE 40MG/4ML VIAL IVP SCH (09:13)
[2017-06-11] MEDS: FINASTERIDE 5MG TABLET PO SCH (09:13)
[2017-06-11] MEDS: TAMSULOSIN HCL 0.4MG SR CAPSULE PO SCH (09:14)
[2017-06-11 12:00] VITALS: BP 113/67
[2017-06-11 16:00] VITALS: BP 124/66
[2017-06-11 16:56] VITALS: BP 124/66
== END 2017-06-11 17:58 | DRG 64 ==
LOC: ER 12:24 → 6WST 14:16 → EDBEDREQ 14:19 → ENRESERV 14:56
PROVIDERS: ADMIT Internal Medicine Nephrology; ATTEND Internal Medicine Nephrology
PROC: 30233N1 Transfusion of Nonautologous Red Blood Cells into Peripheral Vein, Percutaneous Approach (ICD-10-PCS; principal; 2017-06-09)
DX: I63.9 Cerebral infarction, unspecified (principal); J96.00 Acute respiratory failure, unspecified whether with hypoxia or hypercapnia; G93.40 Encephalopathy, unspecified; N17.9 Acute kidney failure, unspecified; E46 Unspecified protein-calorie malnutrition; R13.10 Dysphagia, unspecified; E87.0 Hyperosmolality and hypernatremia; N39.0 Urinary tract infection, site not specified; M62.82 Rhabdomyolysis; I50.30 Unspecified diastolic (congestive) heart failure; I13.0 Hypertensive heart and chronic kidney disease with heart failure and stage 1 through stage 4 chronic kidney disease, or unspecified chronic kidney disease; Z68.1 Body mass index [BMI] 19.9 or less, adult; W01.0XXA Fall on same level from slipping, tripping and stumbling without subsequent striking against object, initial encounter; I27.20 Pulmonary hypertension, unspecified; E83.42 Hypomagnesemia; E87.5 Hyperkalemia; D63.8 Anemia in other chronic diseases classified elsewhere; S01.81XA Laceration without foreign body of other part of head, initial encounter; E78.00 Pure hypercholesterolemia, unspecified; N18.9 Chronic kidney disease, unspecified; N40.0 Benign prostatic hyperplasia without lower urinary tract symptoms; N43.3 Hydrocele, unspecified; N62 Hypertrophy of breast; S01.112A Laceration without foreign body of left eyelid and periocular area, initial encounter; R26.9 Unspecified abnormalities of gait and mobility; Y93.89 Activity, other specified; Y92.89 Other specified places as the place of occurrence of the external cause; Z99.2 Dependence on renal dialysis; Y99.8 Other external cause status
CPT/HCPCS: 36415; 36430; 36600; 70450; 70486; 70544; 70551; 71045; 72125; 72170; 78582; 80048; 80053; 80061; 80202; 81003; 82140; 82375; 82550; 82553; 82607; 82746; 82805; 82962; 83036; 83540; 83550; 83605; 83690; 83735; 83880; 84100; 84439; 84443; 84481; 84484; 85025; 85610; 85730; 86850; 86900; 86920; 87040; 87086; 87106; 92610; 93005; 93880; 93970; 94640; 96365; 97116; 97162; 97166; 97530; 99285; A9558; J0696; J0885; J1940; J3370; J3475; J3490; J7050; J7060; J7620; P9016; A4315

== ENCOUNTER 2017-06-11 18:17 | Inpatient (IN) | payer MEDICARE ==
[~2017-06-11] VITALS: Ht 188 cm; Wt 63.5 kg
[~2017-06-11 18:17] MED LIST: FINA5TAB11 MT; LEVO250T2 MT; TAMS-11 MT
[2017-06-11] MEDS ORDERED: DOCUSATE SODIUM 100MG CAPSULE PO PRN (19:15)
[2017-06-11] MEDS ORDERED: CLONIDINE 0.1MG TABLET PO PRN (19:15)
[2017-06-11] MEDS ORDERED: IPRATROPIUM/ALBUTEROL 0.5-3(2.5)MG/3ML NEB HHN PRN (19:15)
[2017-06-11] MEDS ORDERED: DEXT 5%/0.45% NACL 1000ML 1,000 ML IV SCH (19:15)
[2017-06-11] MEDS ORDERED: ACETAMINOPHEN 325MG TABLET PO PRN (19:15)
[2017-06-11] MEDS ORDERED: ONDANSETRON HCL 4MG/2ML VIAL IV PRN (19:15)
[2017-06-11] MEDS ORDERED: HYDROMORPHONE HCL/PF 2MG/ML CPJ IV PRN (19:15)
[2017-06-11 20:00] VITALS: BP 122/70
[2017-06-11] MEDS: TAMSULOSIN HCL 0.4MG SR CAPSULE PO SCH (20:00)
[2017-06-11] MEDS: CEFTRIAXONE 2 G in DEXTROSE 5% WATER 50 ML IV SCH (21:48)
[2017-06-11] MEDS ORDERED: EPOETIN ALFA 10000UNITS/ML VIAL SUBCUT SCH (22:00)
[2017-06-12 07:11] LABS: BASOPHILS % 0.7 % (0.0-2.0); EOSINOPHILS % 6.9 % (0.0-5.0); HEMATOCRIT. 26.5 % (42.0-52.0); HEMOGLOBIN. 8.7 g/dL (14.0-18.0); LYMPHOCYTES % 24.2 % (20.0-50.0); MEAN CORPUSCULAR HEMOGLOBIN 29.4 pg (28.0-32.0); MEAN CORPUSCULAR VOLUME 89.2 fL (80.0-94.0); MEAN PLATELET VOLUME 8.7 fl (7.4-10.4); MONOCYTES % 10.1 % (2.0-8.0); NEUTROPHILS % 58.1 % (40.0-76.0); PLATELET 199 x1000/uL (130-400); RED BLOOD CELL COUNT 2.97 mill/uL (4.7-6.1); RED CELL DISTRIBUTION WIDTH 16.3 % (11.6-14.6)
[2017-06-12] MEDS: IPRATROPIUM/ALBUTEROL 0.5-3(2.5)MG/3ML NEB HHN SCH ×3 (07:18→20:58)
[2017-06-12 07:20] LABS: CHLORIDE 113 mEq/L (98-107)
[2017-06-12 07:53] LABS: PREALBUMIN 10.3 mg/dL (20.0-40.0)
[2017-06-12 08:04] VITALS: BP 127/70
[2017-06-12] MEDS: FINASTERIDE 5MG TABLET PO SCH (08:24)
[2017-06-12] MEDS: TAMSULOSIN HCL 0.4MG SR CAPSULE PO SCH (08:24)
[2017-06-12] MEDS: FUROSEMIDE 40MG/4ML VIAL IVP SCH (11:24)
[2017-06-12] MEDS ORDERED: VANCOMYCIN 1 G PREMIX 200 ML IV SCH (13:00)
[2017-06-12] MEDS ORDERED: LEVOFLOXACIN 250MG TABLET PO SCH (18:00)
[2017-06-12 20:06] VITALS: BP 116/66
[2017-06-12] MEDS: CEFTRIAXONE 2 G in DEXTROSE 5% WATER 50 ML IV SCH (21:14)
[2017-06-13] MEDS: IPRATROPIUM/ALBUTEROL 0.5-3(2.5)MG/3ML NEB HHN SCH ×4 (02:43→20:59)
[2017-06-13 07:22] LABS: BASOPHILS % 0.9 % (0.0-2.0); EOSINOPHILS % 7.5 % (0.0-5.0); HEMATOCRIT. 24.7 % (42.0-52.0); HEMOGLOBIN. 8.1 g/dL (14.0-18.0); LYMPHOCYTES % 29.7 % (20.0-50.0); MEAN CORPUSCULAR VOLUME 88.3 fL (80.0-94.0); MEAN PLATELET VOLUME 9.1 fl (7.4-10.4); MONOCYTES % 9.4 % (2.0-8.0); NEUTROPHILS % 52.5 % (40.0-76.0); PLATELET 199 x1000/uL (130-400); RED CELL DISTRIBUTION WIDTH 15.9 % (11.6-14.6)
[2017-06-13 07:35] LABS: PHOSPHORUS 3.3 mg/dL (2.5-4.9)
[2017-06-13] MEDS ORDERED: POTASSIUM CHLORIDE 20MEQ/PACKET PO SCH (08:00)
[2017-06-13 08:17] VITALS: BP 119/68
[2017-06-13] MEDS: FUROSEMIDE 40MG/4ML VIAL IVP SCH (08:33)
[2017-06-13] MEDS: FINASTERIDE 5MG TABLET PO SCH (08:34)
[2017-06-13] MEDS: TAMSULOSIN HCL 0.4MG SR CAPSULE PO SCH (08:34)
[2017-06-13] MEDS ORDERED: MAGNESIUM 2 G PREMIX 50 ML IV SCH (09:00)
[2017-06-13] MEDS: LEVOFLOXACIN 250MG TABLET PO SCH (17:02)
[2017-06-13 20:24] VITALS: BP 127/75
[2017-06-13] MEDS: CEFTRIAXONE 2 G in DEXTROSE 5% WATER 50 ML IV SCH (21:59)
[2017-06-14] MEDS: IPRATROPIUM/ALBUTEROL 0.5-3(2.5)MG/3ML NEB HHN SCH ×4 (02:21→20:05)
[2017-06-14 06:39] LABS: AMMONIA < 10 uMol/L (<32)
[2017-06-14 07:02] LABS: EOSINOPHILS % 7.7 % (0.0-5.0); HEMATOCRIT. 28.4 % (42.0-52.0); HEMOGLOBIN. 9.3 g/dL (14.0-18.0); LYMPHOCYTES % 26.3 % (20.0-50.0); MEAN CORPUSCULAR HEMOGLOBIN 29.2 pg (28.0-32.0); MEAN CORPUSCULAR VOLUME 88.9 fL (80.0-94.0); MEAN PLATELET VOLUME 8.8 fl (7.4-10.4); MONOCYTES % 10.1 % (2.0-8.0); NEUTROPHILS % 54.9 % (40.0-76.0); PLATELET 228 x1000/uL (130-400)
[2017-06-14 07:12] LABS: PHOSPHORUS 3.7 mg/dL (2.5-4.9)
[2017-06-14 07:32] LABS: FOLIC ACID (FOLATE) SERUM 6.4 ng/mL (>5.38)
[2017-06-14 07:45] VITALS: BP 123/71
[2017-06-14] MEDS: FINASTERIDE 5MG TABLET PO SCH (09:24)
[2017-06-14] MEDS: FUROSEMIDE 40MG TABLET PO SCH (09:24)
[2017-06-14] MEDS: LEVOTHYROXINE SODIUM 25MCG TABLET PO SCH (09:24)
[2017-06-14] MEDS: FERROUS SULFATE 325MG TABLET PO SCH ×3 (09:25→16:35)
[2017-06-14] MEDS: TAMSULOSIN HCL 0.4MG SR CAPSULE PO SCH (09:25)
[2017-06-14] MEDS: CLOPIDOGREL 75MG TABLET PO SCH (09:26)
[2017-06-14] MEDS ORDERED: VANCOMYCIN 1250MG in DEXTROSE 5% WATER 250ML IV SCH (14:00)
[2017-06-14] MEDS: LEVOFLOXACIN 250MG TABLET PO SCH (16:34)
[2017-06-14 20:00] VITALS: BP 131/70
[2017-06-14] MEDS: CEFTRIAXONE 2 G in DEXTROSE 5% WATER 50 ML IV SCH (21:37)
[2017-06-14] MEDS: EPOETIN ALFA 10000UNITS/ML VIAL SUBCUT SCH (21:37)
[2017-06-15] MEDS: IPRATROPIUM/ALBUTEROL 0.5-3(2.5)MG/3ML NEB HHN SCH ×4 (01:32→21:07)
[2017-06-15 06:36] LABS: BASOPHILS % 0.8 % (0.0-2.0); EOSINOPHILS % 8.2 % (0.0-5.0); HEMATOCRIT. 26.6 % (42.0-52.0); HEMOGLOBIN. 8.6 g/dL (14.0-18.0); MEAN CORPUSCULAR HEMOGLOBIN 28.7 pg (28.0-32.0); MEAN CORPUSCULAR VOLUME 88.8 fL (80.0-94.0); MEAN PLATELET VOLUME 8.5 fl (7.4-10.4); MONOCYTES % 9.6 % (2.0-8.0); NEUTROPHILS % 55.4 % (40.0-76.0); PLATELET 224 x1000/uL (130-400); RED CELL DISTRIBUTION WIDTH 15.9 % (11.6-14.6)
[2017-06-15] MEDS: LEVOTHYROXINE SODIUM 25MCG TABLET PO SCH (06:36)
[2017-06-15 07:57] VITALS: BP 128/75
[2017-06-15] MEDS: TAMSULOSIN HCL 0.4MG SR CAPSULE PO SCH (08:50)
[2017-06-15] MEDS: FINASTERIDE 5MG TABLET PO SCH (08:50)
[2017-06-15] MEDS: FERROUS SULFATE 325MG TABLET PO SCH ×3 (08:50→17:18)
[2017-06-15] MEDS: FUROSEMIDE 40MG TABLET PO SCH (08:50)
[2017-06-15] MEDS: CLOPIDOGREL 75MG TABLET PO SCH (08:50)
[2017-06-15] MEDS: LEVOFLOXACIN 250MG TABLET PO SCH (17:18)
[2017-06-15 20:00] VITALS: BP 121/62
[2017-06-15] MEDS: CEFTRIAXONE 2 G in DEXTROSE 5% WATER 50 ML IV SCH (21:34)
[2017-06-16] MEDS: IPRATROPIUM/ALBUTEROL 0.5-3(2.5)MG/3ML NEB HHN SCH ×4 (02:43→20:02)
[2017-06-16] MEDS: LEVOTHYROXINE SODIUM 25MCG TABLET PO SCH (06:18)
[2017-06-16 06:39] LABS: BASOPHILS % 0.9 % (0.0-2.0); EOSINOPHILS % 9.6 % (0.0-5.0); HEMATOCRIT. 26.4 % (42.0-52.0); HEMOGLOBIN. 8.6 g/dL (14.0-18.0); LYMPHOCYTES % 27.4 % (20.0-50.0); MEAN CORPUSCULAR HEMOGLOBIN 28.8 pg (28.0-32.0); MEAN CORPUSCULAR VOLUME 88.9 fL (80.0-94.0); MEAN PLATELET VOLUME 8.7 fl (7.4-10.4); MONOCYTES % 10.1 % (2.0-8.0); PLATELET 226 x1000/uL (130-400); RED BLOOD CELL COUNT 2.97 mill/uL (4.7-6.1); RED CELL DISTRIBUTION WIDTH 16.3 % (11.6-14.6)
[2017-06-16 07:22] LABS: PHOSPHORUS 3.4 mg/dL (2.5-4.9)
[2017-06-16 08:00] VITALS: BP 107/55
[2017-06-16] MEDS: VANCOMYCIN 1250MG in DEXTROSE 5% WATER 250ML IV SCH (08:08)
[2017-06-16] MEDS: FUROSEMIDE 40MG TABLET PO SCH (08:09)
[2017-06-16] MEDS: CLOPIDOGREL 75MG TABLET PO SCH (08:09)
[2017-06-16] MEDS: FINASTERIDE 5MG TABLET PO SCH (08:09)
[2017-06-16] MEDS: FERROUS SULFATE 325MG TABLET PO SCH ×3 (08:09→17:16)
[2017-06-16] MEDS: TAMSULOSIN HCL 0.4MG SR CAPSULE PO SCH (08:17)
[2017-06-16] MEDS: ZINC SULFATE 220 MG ( 50 ) CAPSULE PO SCH (17:16)
[2017-06-16] MEDS: LEVOFLOXACIN 250MG TABLET PO SCH (17:16)
[2017-06-16 20:00] VITALS: BP 120/73
[2017-06-16] MEDS: CEFTRIAXONE 2 G in DEXTROSE 5% WATER 50 ML IV SCH (22:08)
[2017-06-16] MEDS: EPOETIN ALFA 10000UNITS/ML VIAL SUBCUT SCH (22:08)
[2017-06-17] MEDS: IPRATROPIUM/ALBUTEROL 0.5-3(2.5)MG/3ML NEB HHN SCH ×4 (00:30→20:12)
[2017-06-17] MEDS: LEVOTHYROXINE SODIUM 25MCG TABLET PO SCH (06:23)
[2017-06-17 08:12] VITALS: BP 126/72
[2017-06-17] MEDS: FERROUS SULFATE 325MG TABLET PO SCH ×3 (09:03→17:26)
[2017-06-17] MEDS: FUROSEMIDE 40MG TABLET PO SCH (09:03)
[2017-06-17] MEDS: DOCUSATE SODIUM 100MG CAPSULE PO SCH ×2 (09:03→17:26)
[2017-06-17] MEDS: CLOPIDOGREL 75MG TABLET PO SCH (09:04)
[2017-06-17] MEDS: ZINC SULFATE 220 MG ( 50 ) CAPSULE PO SCH (09:04)
[2017-06-17] MEDS: FINASTERIDE 5MG TABLET PO SCH (09:04)
[2017-06-17] MEDS: TAMSULOSIN HCL 0.4MG SR CAPSULE PO SCH (09:04)
[2017-06-17] MEDS: POLYETHYLENE GLYCOL 3350 (17GM) 1 DOSE PACK PO SCH (09:04)
[2017-06-17] MEDS: LEVOFLOXACIN 250MG TABLET PO SCH (17:26)
[2017-06-17 20:00] VITALS: BP 143/78
[2017-06-17] MEDS: CEFTRIAXONE 2 G in DEXTROSE 5% WATER 50 ML IV SCH (21:56)
[2017-06-18] MEDS: IPRATROPIUM/ALBUTEROL 0.5-3(2.5)MG/3ML NEB HHN SCH ×4 (01:09→20:10)
[2017-06-18] MEDS: LEVOTHYROXINE SODIUM 25MCG TABLET PO SCH (06:02)
[2017-06-18 07:44] LABS: BASOPHILS % 0.9 % (0.0-2.0); EOSINOPHILS % 11.4 % (0.0-5.0); HEMATOCRIT. 28.5 % (42.0-52.0); HEMOGLOBIN. 9.4 g/dL (14.0-18.0); LYMPHOCYTES % 25.9 % (20.0-50.0); MEAN CORPUSCULAR HEMOGLOBIN 29.2 pg (28.0-32.0); MEAN PLATELET VOLUME 8.8 fl (7.4-10.4); MONOCYTES % 10.7 % (2.0-8.0); NEUTROPHILS % 51.1 % (40.0-76.0); PLATELET 220 x1000/uL (130-400); RED BLOOD CELL COUNT 3.21 mill/uL (4.7-6.1); RED CELL DISTRIBUTION WIDTH 16.4 % (11.6-14.6)
[2017-06-18 08:00] VITALS: BP 137/69
[2017-06-18] MEDS: VANCOMYCIN 1250MG in DEXTROSE 5% WATER 250ML IV SCH (08:28)
[2017-06-18] MEDS: POLYETHYLENE GLYCOL 3350 (17GM) 1 DOSE PACK PO SCH (08:28)
[2017-06-18] MEDS: DOCUSATE SODIUM 100MG CAPSULE PO SCH ×2 (08:29→16:45)
[2017-06-18] MEDS: ZINC SULFATE 220 MG ( 50 ) CAPSULE PO SCH (08:29)
[2017-06-18] MEDS: FUROSEMIDE 40MG TABLET PO SCH (08:29)
[2017-06-18] MEDS: CLOPIDOGREL 75MG TABLET PO SCH (08:29)
[2017-06-18] MEDS: FERROUS SULFATE 325MG TABLET PO SCH ×3 (08:29→16:45)
[2017-06-18] MEDS: TAMSULOSIN HCL 0.4MG SR CAPSULE PO SCH (08:30)
[2017-06-18] MEDS: FINASTERIDE 5MG TABLET PO SCH (08:30)
[2017-06-18] MEDS: LEVOFLOXACIN 250MG TABLET PO SCH (16:45)
[2017-06-18 20:00] VITALS: BP 127/75
[2017-06-18] MEDS: CEFTRIAXONE 2 G in DEXTROSE 5% WATER 50 ML IV SCH (21:08)
[2017-06-18] MEDS: EPOETIN ALFA 10000UNITS/ML VIAL SUBCUT SCH (21:52)
[2017-06-19] MEDS: IPRATROPIUM/ALBUTEROL 0.5-3(2.5)MG/3ML NEB HHN SCH ×4 (01:45→21:30)
[2017-06-19] MEDS: LEVOTHYROXINE SODIUM 25MCG TABLET PO SCH (06:03)
[2017-06-19 08:00] VITALS: BP 125/70
[2017-06-19] MEDS: DOCUSATE SODIUM 100MG CAPSULE PO SCH ×2 (08:40→17:34)
[2017-06-19] MEDS: FERROUS SULFATE 325MG TABLET PO SCH ×3 (08:40→17:34)
[2017-06-19] MEDS: FUROSEMIDE 40MG TABLET PO SCH (08:40)
[2017-06-19] MEDS: CLOPIDOGREL 75MG TABLET PO SCH (08:40)
[2017-06-19] MEDS: ZINC SULFATE 220 MG ( 50 ) CAPSULE PO SCH (08:41)
[2017-06-19] MEDS: TAMSULOSIN HCL 0.4MG SR CAPSULE PO SCH (08:41)
[2017-06-19] MEDS: FINASTERIDE 5MG TABLET PO SCH (08:41)
[2017-06-19] MEDS: POLYETHYLENE GLYCOL 3350 (17GM) 1 DOSE PACK PO SCH (08:41)
[2017-06-19 14:17] LABS: 25-HYDROXY VITAMIN D3 11 ng/mL (.)
[2017-06-19] MEDS: LEVOFLOXACIN 250MG TABLET PO SCH (17:34)
[2017-06-19 20:00] VITALS: BP 125/64
[2017-06-19] MEDS: CEFTRIAXONE 2 G in DEXTROSE 5% WATER 50 ML IV SCH (21:33)
[2017-06-20] MEDS: IPRATROPIUM/ALBUTEROL 0.5-3(2.5)MG/3ML NEB HHN SCH ×4 (03:02→20:07)
[2017-06-20] MEDS: LEVOTHYROXINE SODIUM 25MCG TABLET PO SCH (06:02)
[2017-06-20 07:55] LABS: BASOPHILS % 0.8 % (0.0-2.0); EOSINOPHILS % 11.2 % (0.0-5.0); HEMOGLOBIN. 9.4 g/dL (14.0-18.0); LYMPHOCYTES % 24.4 % (20.0-50.0); MEAN CORPUSCULAR VOLUME 89.1 fL (80.0-94.0); MEAN PLATELET VOLUME 8.5 fl (7.4-10.4); MONOCYTES % 13.2 % (2.0-8.0); NEUTROPHILS % 50.4 % (40.0-76.0); PLATELET 233 x1000/uL (130-400); RED BLOOD CELL COUNT 3.26 mill/uL (4.7-6.1); RED CELL DISTRIBUTION WIDTH 16.4 % (11.6-14.6)
[2017-06-20 08:00] VITALS: BP 118/65
[2017-06-20] MEDS: ZINC SULFATE 220 MG ( 50 ) CAPSULE PO SCH (09:18)
[2017-06-20] MEDS: CLOPIDOGREL 75MG TABLET PO SCH (09:18)
[2017-06-20] MEDS: FINASTERIDE 5MG TABLET PO SCH (09:18)
[2017-06-20] MEDS: TAMSULOSIN HCL 0.4MG SR CAPSULE PO SCH (09:18)
[2017-06-20] MEDS: FUROSEMIDE 40MG TABLET PO SCH (09:19)
[2017-06-20] MEDS: VANCOMYCIN 1250MG in DEXTROSE 5% WATER 250ML IV SCH (09:19)
[2017-06-20] MEDS: DOCUSATE SODIUM 100MG CAPSULE PO SCH ×2 (09:19→17:17)
[2017-06-20] MEDS: POLYETHYLENE GLYCOL 3350 (17GM) 1 DOSE PACK PO SCH (09:19)
[2017-06-20] MEDS: FERROUS SULFATE 325MG TABLET PO SCH ×3 (09:20→17:17)
[2017-06-20] MEDS ORDERED: ERGOCALCIFEROL 50000UNITS CAPSULE PO SCH (10:00)
[2017-06-20] MEDS: LEVOFLOXACIN 250MG TABLET PO SCH (17:17)
[2017-06-20 20:00] VITALS: BP 129/63
[2017-06-20] MEDS: CEFTRIAXONE 2 G in DEXTROSE 5% WATER 50 ML IV SCH (23:12)
[2017-06-21] MEDS: IPRATROPIUM/ALBUTEROL 0.5-3(2.5)MG/3ML NEB HHN SCH ×4 (01:53→21:16)
[2017-06-21] MEDS: LEVOTHYROXINE SODIUM 25MCG TABLET PO SCH (06:18)
[2017-06-21 07:14] LABS: BASOPHILS % 0.6 % (0.0-2.0); EOSINOPHILS % 11.6 % (0.0-5.0); HEMATOCRIT. 29.2 % (42.0-52.0); HEMOGLOBIN. 9.4 g/dL (14.0-18.0); LYMPHOCYTES % 22.6 % (20.0-50.0); MEAN CORPUSCULAR HEMOGLOBIN 28.8 pg (28.0-32.0); MEAN CORPUSCULAR VOLUME 89.2 fL (80.0-94.0); MEAN PLATELET VOLUME 8.3 fl (7.4-10.4); MONOCYTES % 14.5 % (2.0-8.0); NEUTROPHILS % 50.7 % (40.0-76.0); PLATELET 233 x1000/uL (130-400); RED BLOOD CELL COUNT 3.27 mill/uL (4.7-6.1); RED CELL DISTRIBUTION WIDTH 16.6 % (11.6-14.6)
[2017-06-21 08:00] VITALS: BP 152/68
[2017-06-21] MEDS: POLYETHYLENE GLYCOL 3350 (17GM) 1 DOSE PACK PO SCH (09:00)
[2017-06-21] MEDS: FERROUS SULFATE 325MG TABLET PO SCH ×3 (09:14→16:47)
[2017-06-21] MEDS: CLOPIDOGREL 75MG TABLET PO SCH (09:14)
[2017-06-21] MEDS: ZINC SULFATE 220 MG ( 50 ) CAPSULE PO SCH (09:14)
[2017-06-21] MEDS: FINASTERIDE 5MG TABLET PO SCH (09:14)
[2017-06-21] MEDS: DOCUSATE SODIUM 100MG CAPSULE PO SCH ×2 (09:14→16:47)
[2017-06-21] MEDS: TAMSULOSIN HCL 0.4MG SR CAPSULE PO SCH (09:15)
[2017-06-21] MEDS: FUROSEMIDE 40MG TABLET PO SCH (09:15)
[2017-06-21] MEDS: LEVOFLOXACIN 250MG TABLET PO SCH (16:47)
[2017-06-21 20:00] VITALS: BP 135/76
[2017-06-21] MEDS: CEFTRIAXONE 2 G in DEXTROSE 5% WATER 50 ML IV SCH (21:50)
[2017-06-22] MEDS: IPRATROPIUM/ALBUTEROL 0.5-3(2.5)MG/3ML NEB HHN SCH ×2 (01:54→15:58)
[2017-06-22] MEDS: LEVOTHYROXINE SODIUM 25MCG TABLET PO SCH (06:04)
[2017-06-22 07:22] LABS: BASOPHILS % 1.2 % (0.0-2.0); HEMATOCRIT. 31.4 % (42.0-52.0); LYMPHOCYTES % 23.1 % (20.0-50.0); MEAN CORPUSCULAR HEMOGLOBIN 28.4 pg (28.0-32.0); MEAN CORPUSCULAR VOLUME 89.3 fL (80.0-94.0); MEAN PLATELET VOLUME 8.4 fl (7.4-10.4); MONOCYTES % 12.1 % (2.0-8.0); NEUTROPHILS % 50.6 % (40.0-76.0); PLATELET 225 x1000/uL (130-400); RED BLOOD CELL COUNT 3.51 mill/uL (4.7-6.1); RED CELL DISTRIBUTION WIDTH 16.5 % (11.6-14.6)
[2017-06-22 08:00] VITALS: BP 126/71
[2017-06-22] MEDS: FERROUS SULFATE 325MG TABLET PO SCH ×3 (08:12→16:42)
[2017-06-22] MEDS: ZINC SULFATE 220 MG ( 50 ) CAPSULE PO SCH (08:12)
[2017-06-22] MEDS: CLOPIDOGREL 75MG TABLET PO SCH (08:12)
[2017-06-22] MEDS: TAMSULOSIN HCL 0.4MG SR CAPSULE PO SCH (08:12)
[2017-06-22] MEDS: POLYETHYLENE GLYCOL 3350 (17GM) 1 DOSE PACK PO SCH (08:12)
[2017-06-22] MEDS: DOCUSATE SODIUM 100MG CAPSULE PO SCH ×2 (08:12→16:42)
[2017-06-22] MEDS: FINASTERIDE 5MG TABLET PO SCH (08:12)
[2017-06-22] MEDS: VANCOMYCIN 1250MG in DEXTROSE 5% WATER 250ML IV SCH (08:14)
[2017-06-22] MEDS ORDERED: FUROSEMIDE 20MG TABLET PO SCH (09:00)
[2017-06-22] MEDS: CEFTRIAXONE 2 G in DEXTROSE 5% WATER 50 ML IV SCH (15:00)
[2017-06-22 15:33] VITALS: BP 131/71
[2017-06-22 15:39] VITALS: BP 131/71
[2017-06-22] MEDS: LEVOFLOXACIN 250MG TABLET PO SCH (16:42)
== END 2017-06-22 17:22 | disposition home health service (06) | DRG 64 ==
PROVIDERS: ADMIT Physical Medicine & Rehabilitation Spinal Cord Injury Medicine; ATTEND Internal Medicine Nephrology
DX: I63.9 Cerebral infarction, unspecified (principal); G93.40 Encephalopathy, unspecified; J96.00 Acute respiratory failure, unspecified whether with hypoxia or hypercapnia; N17.9 Acute kidney failure, unspecified; R13.10 Dysphagia, unspecified; E87.0 Hyperosmolality and hypernatremia; I13.0 Hypertensive heart and chronic kidney disease with heart failure and stage 1 through stage 4 chronic kidney disease, or unspecified chronic kidney disease; N39.0 Urinary tract infection, site not specified; M62.82 Rhabdomyolysis; B37.49 Other urogenital candidiasis; E87.5 Hyperkalemia; I50.9 Heart failure, unspecified; E87.70 Fluid overload, unspecified; N18.3 Chronic kidney disease, stage 3 (moderate); R47.1 Dysarthria and anarthria; R26.9 Unspecified abnormalities of gait and mobility; R53.81 Other malaise; S01.81XA Laceration without foreign body of other part of head, initial encounter; R55 Syncope and collapse; R07.81 Pleurodynia; E78.00 Pure hypercholesterolemia, unspecified; R41.89 Other symptoms and signs involving cognitive functions and awareness; M79.609 Pain in unspecified limb; R20.0 Anesthesia of skin; L98.499 Non-pressure chronic ulcer of skin of other sites with unspecified severity; D50.9 Iron deficiency anemia, unspecified; F06.31 Mood disorder due to known physiological condition with depressive features; F01.50 Vascular dementia, unspecified severity, without behavioral disturbance, psychotic disturbance, mood disturbance, and anxiety; N40.1 Benign prostatic hyperplasia with lower urinary tract symptoms; R33.8 Other retention of urine; E55.9 Vitamin D deficiency, unspecified; I27.20 Pulmonary hypertension, unspecified; W18.30XA Fall on same level, unspecified, initial encounter; Y93.89 Activity, other specified; Y92.89 Other specified places as the place of occurrence of the external cause; Y99.8 Other external cause status; Z79.2 Long term (current) use of antibiotics; Z87.440 Personal history of urinary (tract) infections
CPT/HCPCS: 36415; 80048; 80053; 80202; 82140; 82270; 82306; 82550; 82607; 82728; 82746; 83540; 83550; 83735; 84100; 84134; 84443; 84630; 85025; 92523; 92610; 93970; 94640; 97110; 97112; 97116; 97162; 97167; 97530; 97535; A6261; G0515; J0696; J0885; J1940; J3370; J3475; J7040; J7050; J7060; J7620; A4315; A5200